=== PATIENT | female | born 1980 | race Caucasian/White ===

== ENCOUNTER 2021-07-29 11:00 | Outpatient (RCR) | payer OTHER, SELFPAY | END 2021-08-29 08:00 | disposition home or self-care (01) | LOC: HO.PT 11:00 | DX: R39.15 Urgency of urination (principal) | CPT/HCPCS: 97110; 97112; 97163; 97530 ==

== ENCOUNTER → 2021-08-11 15:12 | Outpatient (BNVA) | payer OTHER, SELFPAY | PROVIDERS: PCP Physician Assistant | DX: N39.41 Urge incontinence (principal) | CPT/HCPCS: 51798; 99212 ==

== ENCOUNTER → 2021-11-11 12:54 | Outpatient (BNVA) | payer OTHER, SELFPAY | PROVIDERS: PCP Physician Assistant ==

== ENCOUNTER → 2022-02-10 13:05 | Outpatient (BNVA) | payer OTHER, SELFPAY | PROVIDERS: PCP Physician Assistant | DX: Z13.89 Encounter for screening for other disorder (principal) ==

== ENCOUNTER → 2022-06-15 15:38 | Outpatient (BNVA) | payer OTHER, SELFPAY | PROVIDERS: PCP Physician Assistant | DX: N39.41 Urge incontinence (principal); R39.15 Urgency of urination | CPT/HCPCS: 51798; 99212 ==

== ENCOUNTER 2023-02-28 15:52 | Outpatient (REF) | payer OTHER, SELFPAY | END 2023-02-28 15:53 | disposition home or self-care (01) | LOC: HO.LAB 15:52 | PROVIDERS: PCP Physician Assistant; Visit Provider Urology | DX: N39.41 Urge incontinence (principal); R39.11 Hesitancy of micturition; R33.9 Retention of urine, unspecified; R30.0 Dysuria | CPT/HCPCS: 87086; 99212 ==

== ENCOUNTER 2023-05-11 13:38 | Outpatient (REF) | payer OTHER, SELFPAY ==
--- NOTE | ~2023-05-11 | US_ITS ---
EXAMINATION: US RETROPERITONEAL COMPLETE (RENAL) CLINICAL INFORMATION: Urgency of urination. COMPARISON: None available. TECHNIQUE: Real-time imaging of the kidneys and bladder. FINDINGS: RIGHT KIDNEY: 10.4 x 3.1 x 5.0 cm (SAG x AP x TRV). The kidney is normal in size, contour, and echogenicity. Renal cortical thickness is normal. No calculi or focal parenchymal lesions. No hydronephrosis. Mild fullness of the renal pelvis is noted. LEFT KIDNEY: 11.0 x 4.0 x 4.5 cm (SAG x AP x TRV). The kidney is normal in size, contour, and echogenicity. Renal cortical thickness is normal. No calculi or focal parenchymal lesions. No hydronephrosis. Mild fullness of the renal pelvis is noted. BLADDER: Well distended and normal. Bilateral ureteral jets are demonstrated. Prevoid bladder volume is 130.69 mL. Postvoid bladder volume is 17.6 mL. Mild trabeculation of the bladder wall is seen. US/US retroperitoneal comp IMPRESSION: 1. Normal appearance of the kidneys. 2. Small post void residual. 3. Mild trabeculation of the bladder wall.
== END 2023-05-11 13:39 | disposition home or self-care (01) ==
LOC: HO.US 13:38
PROVIDERS: PCP Physician Assistant; Visit Provider Urology
DX: R39.15 Urgency of urination (principal)
CPT/HCPCS: 76770

== ENCOUNTER 2023-05-16 13:14 | Outpatient (AMB) | payer OTHER, SELFPAY ==
--- NOTE | 2023-05-16 12:35 | A.OFFVIS_ITS ---
Intake Intake Visit Reasons: 2m/luts Intake Note: Patient presents today for a follow-up on: Meds- Estradiol & Macrobid Allergies to Antibiotic- Sulfa Blood Thinner- None PVR- Pharmacy Technician Inpatient Required: No Accompanied by: Self / Same As Patient Allergies Sulfa (Sulfonamide Antibiotics) Allergy (Unknown, Verified 05/16/23 13:32) Unknown pork Allergy (Unknown, Uncoded 05/16/23 13:32) Unknown Vicodin Allergy (Unknown, Uncoded 05/16/23 13:32) Unknown Patient : Yes HPI HPI Comments History of Present Illness Details Crys is a 42-year-old female who presents to the clinic today for a follow-up. 05/16/23-- Patient was last seen in the office on 02/28/23. She is followed due to lower urinary tract symptoms of dysuria, urinary hesitancy, and incomplete bladder emptying. She was referred to physical therapy, but was discharged from physical therapy due to her noncompliance. On last visit on 02/28/23, she was given a prescription for Macrobid 100 mg twice a day for 10 days. Urine culture was sent. On review, the urine culture came back with no growth. In discussion with the patient, she states that when she took the antibiotic, her urinary symptoms seem to improve. She stopped the antibiotic midway and symptoms came back as far as burning with urination. I explained to her that the urine culture with no growth and that there are no other conditions of the urinary tract which include cystitis that may not have a bacterial cause for the inflammation and that I want to further evaluate her bladder with outpatient cystoscoscpy hydrodistetion. I did discuss avoiding dietary bladder irritants including carbonated beverages, acidy foods and beverages, coffee. Results reviewed - Renal US 05/11/23 -- Kidneys WNL. Negative for renal calculi or parenchymal lesions. Bladder noted some mild trabeculation. Minimal postvoid residual. Urine culture was sent and it came back no growth. Evaluation today-- UA -- 2+ leukocytes. Blood negative. I will send the urine for culture again. Plan: Ultrasound findings were discussed with the patient. Patient signed consent for cystoscopy hydrodistention. I prescribed Pyridium 200 mg to use twice a day p.r.n. for her symptoms of dysuria. FORMERLY [facility] Medical History Anemia Chronic back pain Chronic fatigue syndrome Constipation Fibroids Gastritis Hepatitis C HTN (hypertension) Hypokalemia Urgency incontinence Urgency incontinence Surgical History History of surgery Review of Systems Const All systems reviewed & are unremarkable except as noted in HPI and below Reports no additional complaints Eyes Reports no additional complaints ENT Denies neck pain Card Denies leg edema Resp Denies cough GI Denies constipation Reports no additional complaints Musc Reports no additional complaints and Denies neck pain Skin/Breast Denies rash and Denies unusual bruising Neuro Reports no additional complaints Psych Reports no additional complaints Endo Reports no additional complaints Rubén/Lymph Reports no additional complaints Aller/Immun Reports no additional complaints Physical Exam Const General: cooperative, healthy appearing and no acute distress Orientation/consciousness: patient oriented x3 HEENT Head: Yes normal to inspection, Yes normocephalic and Yes atraumatic Eyes Conjunctivae: conjunctivae normal Neck Neck: Yes normal visual inspection and Yes trachea midline Chest Chest palpation & inspection: normal inspection of the chest Resp Effort & Inspection: normal respiratory effort Cardio Rate: regular rate GI Inspection: Yes normal to inspection Neuro General: patient oriented x3 Extrem General: No edema Psych Appearance: grossly normal Results Reviewed Results Reviewed: Date: 05/11/23 FINDINGS: RIGHT KIDNEY: 10.4 x 3.1 x 5.0 cm (SAG x AP x TRV). The kidney is normal in size, contour, and echogenicity. Renal cortical thickness is normal. No calculi or focal parenchymal lesions. No hydronephrosis. Mild fullness of the renal pelvis is noted. LEFT KIDNEY: 11.0 x 4.0 x 4.5 cm (SAG x AP x TRV). The kidney is normal in size, contour, and echogenicity. Renal cortical thickness is normal. No calculi or focal parenchymal lesions. No hydronephrosis. Mild fullness of the renal pelvis is noted. BLADDER: Well distended and normal. Bilateral ureteral jets are demonstrated. Prevoid bladder volume is 130.69 mL. Postvoid bladder volume is 17.6 mL. Mild trabeculation of the bladder wall is seen. IMPRESSION: 1.? Normal appearance of the kidneys. 2.? Small post void residual. 3.? Mild trabeculation of the bladder wall. Assessment & Plan Assessment & Plan (1) Urinary urgency: Code(s): R39.15 - Urgency of urination (2) Dysuria: Code(s): R30.0 - Dysuria Plan Ultrasound findings were discussed with the patient. Patient signed consent for cystoscopy hydrodistention. I prescribed Pyridium 200 mg to use twice a day p.r.n. for her symptoms of dysuria. Orders: Orders AMB Urinalysis Automated 05/16/23 Z13.9 - Encounter for screening, unspecified Medications: New phenazopyridine (Pyridium) 200 mg PO BID 40 tabs 0RF Patient Instructions: The patient had an opportunity to ask questions regarding treatment plan. All questions were answered. Imaging, Laboratory studies and physical exam results were discussed and reviewed in detail. No major barriers to understanding were identified. The patient expressed understanding and agreement with the above treatment plan. The patient is aware they should contact our office by phone for worsening of their current condition or the appearance of new symptoms. Compliance is encouraged with any medications and followup testing that is ordered. It is a privilege to be allowed the opportunity to participate in the urologic care of your patient. If you have any questions or concerns regarding treatment for the above conditions please do not hesitate to contact me. The office telephone contact is [phone]. This note is constructed in part using voice recognition software. While every effort has been made to ensure accuracy rotoprinter errors may have been included. Yours sincerely, Dylan Chavarria MD Coding Level of Care Code Est Pt Level 4 (17235) Diagnoses Urinary urgency R39.15 Dysuria R30.0
== END 2023-05-16 13:51 | disposition home or self-care (01) ==
PROVIDERS: Visit Provider Urology
DX: R39.15 Urgency of urination (principal); R30.0 Dysuria
CPT/HCPCS: 99214

== ENCOUNTER → 2023-05-16 13:14 | Outpatient (BNVA) | payer OTHER, SELFPAY | PROVIDERS: Visit Provider Urology | DX: R39.15 Urgency of urination (principal); R30.0 Dysuria | CPT/HCPCS: 99212 ==

== ENCOUNTER 2023-06-18 15:17 | Outpatient (AMB) | payer OTHER, SELFPAY ==
--- NOTE | 2023-06-15 12:06 | A.OFFVIS_ITS ---
Intake Intake Visit Reasons: surgical questions Intake Note: Patient presents today for a follow-up on Surgical Questions: Meds- Estradiol & Macrobid Allergies to Antibiotic- Sulfa Blood Thinner- None Clinical Data Research Required: No Accompanied by: Self / Same As Patient Allergies Sulfa (Sulfonamide Antibiotics) Allergy (Unknown, Verified 06/18/23 15:30) Unknown pork Allergy (Unknown, Uncoded 06/18/23 15:30) Unknown Vicodin Allergy (Unknown, Uncoded 06/18/23 15:30) Unknown HPI HPI Comments History of Present Illness Details Trista is a 42-year-old female who presents today to the office for surgical questions. 06/18/2023? She was last seen by me on 05/16/2023 for lower urinary tract symptoms of dysuria, urinary hesitancy, and incomplete bladder emptying. She was prescribed Pyridium 200 mg to use twice a day p.r.n. for her symptoms of dysuria at that time. The visit was changed to in office to Tele-health visit. She had questions regarding US results and procedure. I have reviewed renal US results from 05/11/2023 revealed Kidneys WNL. Negative for renal calculi or parenchymal lesions. Bladder noted some mild trabeculation. Minimal postvoid residual. She is on OTC Azo with benefit. She denies any burning with urination at this time. Cystoscopy Hydrodistension discussed to further evaluate her bladder. Discussed risks to include but not limited to, blood in the urine, burning with urination, urgency. Review of charts: Last visit: 05/16/2023-- She is followed due to lower urinary tract symptoms of dysuria, urinary hesitancy, and incomplete bladder emptying. She was referred to physical therapy, but was discharged from physical therapy due to her noncompliance. On last visit on 02/28/23, she was given a prescription for Macrobid 100 mg twice a day for 10 days. Urine culture was sent. On review, the urine culture came back with no growth. In discussion with the patient, she states that when she took the antibiotic, her urinary symptoms seem to improve. She stopped the antibiotic midway and symptoms came back as far as burning with urination. I explained to her that the urine culture with no growth and that there are no other conditions of the urinary tract which include cystitis that may not have a bacterial cause for the inflammation and that I want to further evaluate her bladder with outpatient cystoscoscpy hydrodistetion. I did discuss avoiding dietary bladder irritants including carbonated beverages, acidy foods and beverages, coffee. Results reviewed - Renal US 05/11/23 -- Kidneys WNL. Negative for renal calculi or parenchymal lesions. Bladder noted some mild trabeculation. Minimal postvoid residual. Urine culture was sent and it came back no growth. Evaluation today-- UA -- 2+ leukocytes. Blood negative. I will send the urine for culture again. Plan: cystoscopy hydrodistention. I prescribed Pyridium 200 mg to use twice a day p.r.n. for her symptoms of dysuria 06/18/2023--Plan: Reschedule the cystoscopy hydrodistention. FOR[facility]LY [facility] Medical History Anemia Chronic back pain Chronic fatigue syndrome Constipation Fibroids Gastritis Hepatitis C HTN (hypertension) Hypokalemia Urgency incontinence Urgency incontinence Surgical History History of surgery Results Reviewed Results Reviewed: Date of Service: 05/11/23 EXAMINATION: US RETROPERITONEAL COMPLETE (RENAL) CLINICAL INFORMATION: Urgency of urination. COMPARISON: None available. FINDINGS: RIGHT KIDNEY: 10.4 x 3.1 x 5.0 cm (SAG x AP x TRV). The kidney is normal in size, contour, and echogenicity. Renal cortical thickness is normal. No calculi or focal parenchymal lesions. No hydronephrosis. Mild fullness of the renal pelvis is noted. LEFT KIDNEY: 11.0 x 4.0 x 4.5 cm (SAG x AP x TRV). The kidney is normal in size, contour, and echogenicity. Renal cortical thickness is normal. No calculi or focal parenchymal lesions. No hydronephrosis. Mild fullness of the renal pelvis is noted. BLADDER: Well distended and normal. Bilateral ureteral jets are demonstrated. Prevoid bladder volume is 130.69 mL. Postvoid bladder volume is 17.6 mL. Mild trabeculation of the bladder wall is seen. IMPRESSION: 1.? Normal appearance of the kidneys. 2.? Small post void residual. 3.? Mild trabeculation of the bladder wall. Assessment & Plan Assessment & Plan (1) Urinary urgency: Code(s): R39.15 - Urgency of urination (2) Dysuria: Code(s): R30.0 - Dysuria Plan Reschedule the cystoscopy hydrodistention. Patient Instructions: The patient had an opportunity to ask questions regarding treatment plan. All questions were answered. Imaging, Laboratory studies and physical exam results were discussed and reviewed in detail. No major barriers to understanding were identified. The patient expressed understanding and agreement with the above treatment plan.? ? ? The patient is aware they should contact our office by phone for worsening of their current condition or the appearance of new symptoms. Compliance is encouraged with any medications and followup testing that is ordered.? ? ? It is a privilege to be allowed the opportunity to participate in the urologic care of your patient. If you have any questions or concerns regarding treatment for the above conditions please do not hesitate to contact me. The office telephone contact is [phone].? ? ? This note is constructed in part using voice recognition software. While every effort has been made to ensure accuracy wood grainer errors may have been included.? ? ? Yours sincerely,? ? ? Dylan Chavarria MD? ? Telehealth Telehealth Location of provider rendering services: practice address Location of patient: address on file Patient Identification confirmed using: Name, : Yes Telehealth method: voice only Patient verbally consented to treatment: Yes Patient verbally consented to billing insurance company: Yes Patient informed of any privacy concerns related to visit: Yes Minutes spent on Phone/Video with Pt.: 15 Coding Level of Care Code Tele Est Pt Level 3 (62452) Diagnoses Urinary urgency R39.15 Dysuria R30.0
== END 2023-06-18 16:20 | disposition home or self-care (01) ==
PROVIDERS: PCP Physician Assistant; Visit Provider Urology
DX: R39.15 Urgency of urination (principal); R30.0 Dysuria
CPT/HCPCS: 99213

== ENCOUNTER → 2023-06-18 15:17 | Outpatient (BNVA) | payer OTHER, SELFPAY | PROVIDERS: PCP Physician Assistant; Visit Provider Urology ==

== ENCOUNTER → 2023-06-26 07:42 | Day surgery (SDC) | payer OTHER, SELFPAY ==
--- NOTE | 2023-05-21 09:30 | HO.ANESPROP2 ---
HPI - Anesthesia Eval Consult details Narrative: 42yo F for Cystoscopy Hydrodistention of Bladder PMFSH Active Problems Active Problems: All Active Problems (Updated 02/28/23 @ 16:30 by Nash Young) Dysuria (Acute) Vaginal prolapse (Acute) Urgency incontinence (Acute) Urinary urgency (Acute) Past Medical History Medical History Anemia Chronic back pain Chronic fatigue syndrome Constipation Fibroids Gastritis Hepatitis C HTN (hypertension) Hypokalemia Urgency incontinence Urgency incontinence Surgical History Surgical History History of surgery Meds Allergies Allergy/AdvReac Type Severity Reaction Status Date / Time Sulfa (Sulfonamide Allergy Unknown Unknown Verified 05/16/23 13:32 Antibiotics) pork Allergy Unknown Unknown Uncoded 05/16/23 13:32 Vicodin Allergy Unknown Unknown Uncoded 05/16/23 13:32 Home Medications Medication Instructions Recorded Confirmed Last Taken Type diphenoxylate-atropine 2.5 1 tab PO TID 05/04/21 09/06/22 Unknown History mg-0.025 mg tablet escitalopram oxalate 10 mg tablet 10 mg PO DAILY 05/04/21 09/06/22 Unknown History medroxyprogesterone 5 mg tablet 5 mg PO DAILY 05/04/21 09/06/22 Unknown History meloxicam 7.5 mg tablet 7.5 mg PO DAILY 05/04/21 09/06/22 Unknown History doxycycline hyclate 100 mg tablet 100 mg PO BID 11/11/21 09/06/22 Unknown History sertraline 25 mg tablet 25 mg PO DAILY 11/11/21 09/06/22 Unknown History terbinafine HCl 250 mg tablet 250 mg PO DAILY 11/11/21 09/06/22 Unknown History fluocinonide 0.05 % topical cream 1 appl topical BID 06/15/22 09/06/22 Unknown History trazodone 50 mg tablet 50 mg PO BEDTIME 09/06/22 09/06/22 Unknown History venlafaxine 75 mg capsule,extended 75 mg PO DAILY 09/06/22 09/06/22 Unknown History release 24 hr Exam Exam Date and Time: May 21, [id number] Assessment and Plan Assessment Anesthesia Assessment: Chart Reviewed
--- NOTE | 2023-06-25 09:48 | HO.ANESPROP2 ---
Documented by User: Mallika Prado NP 06/25/23 09:48 HPI - Anesthesia Eval Consult details Narrative: 42yo F for Cystoscopy Hydrodistention of Bladder PMFSH Active Problems Active Problems: All Active Problems (Updated 02/28/23 @ 16:30 by Nash Young) Dysuria (Acute) Vaginal prolapse (Acute) Urgency incontinence (Acute) Urinary urgency (Acute) Past Medical History Medical History Anemia Chronic back pain Chronic fatigue syndrome Constipation Fibroids Gastritis Hepatitis C HTN (hypertension) Hypokalemia Urgency incontinence Urgency incontinence Surgical History Surgical History History of surgery Social History Social History Advance Directives: No Advance Directives Information Provided: Yes Meds Allergies Allergy/AdvReac Type Severity Reaction Status Date / Time Sulfa (Sulfonamide Allergy Unknown Unknown Verified 06/18/23 15:30 Antibiotics) pork Allergy Unknown Unknown Uncoded 06/18/23 15:30 Vicodin Allergy Unknown Unknown Uncoded 06/18/23 15:30 Home Medications Medication Instructions Recorded Confirmed Last Taken Type diphenoxylate-atropine 2.5 1 tab PO TID 05/04/21 09/06/22 Unknown History mg-0.025 mg tablet escitalopram oxalate 10 mg tablet 10 mg PO DAILY 05/04/21 09/06/22 Unknown History medroxyprogesterone 5 mg tablet 5 mg PO DAILY 05/04/21 09/06/22 Unknown History meloxicam 7.5 mg tablet 7.5 mg PO DAILY 05/04/21 09/06/22 Unknown History doxycycline hyclate 100 mg tablet 100 mg PO BID 11/11/21 09/06/22 Unknown History sertraline 25 mg tablet 25 mg PO DAILY 11/11/21 09/06/22 Unknown History terbinafine HCl 250 mg tablet 250 mg PO DAILY 11/11/21 09/06/22 Unknown History fluocinonide 0.05 % topical cream 1 appl topical BID 06/15/22 09/06/22 Unknown History trazodone 50 mg tablet 50 mg PO BEDTIME 09/06/22 09/06/22 Unknown History venlafaxine 75 mg capsule,extended 75 mg PO DAILY 09/06/22 09/06/22 Unknown History release 24 hr Exam Exam Date and Time: June 25, [id number] Assessment and Plan Assessment Anesthesia Assessment: Chart Reviewed Documented by User: Gabriella Mckinney MD 06/26/23 08:17 HPI - Anesthesia Eval Consult details Narrative: 42yo F for Cystoscopy Hydrodistention of Bladder. Patient admitted to drinking gin and smoking marijuana this morning before coming in for surgery. Case cancelled. [facility] Past Medical History Medical History Anemia Chronic back pain Chronic fatigue syndrome Constipation Fibroids Gastritis Hepatitis C HTN (hypertension) Hypokalemia Urgency incontinence Urgency incontinence Surgical History Surgical History History of surgery Social History Social History Advance Directives: No Advance Directives Information Provided: Yes Meds Allergies Allergy/AdvReac Type Severity Reaction Status Date / Time Sulfa (Sulfonamide Allergy Unknown Unknown Verified 06/18/23 15:30 Antibiotics) pork Allergy Unknown Unknown Uncoded 06/18/23 15:30 Vicodin Allergy Unknown Unknown Uncoded 06/18/23 15:30 Home Medications Medication Instructions Recorded Confirmed Last Taken Type diphenoxylate-atropine 2.5 1 tab PO TID 05/04/21 09/06/22 Unknown History mg-0.025 mg tablet escitalopram oxalate 10 mg tablet 10 mg PO DAILY 05/04/21 09/06/22 Unknown History medroxyprogesterone 5 mg tablet 5 mg PO DAILY 05/04/21 09/06/22 Unknown History meloxicam 7.5 mg tablet 7.5 mg PO DAILY 05/04/21 09/06/22 Unknown History doxycycline hyclate 100 mg tablet 100 mg PO BID 11/11/21 09/06/22 Unknown History sertraline 25 mg tablet 25 mg PO DAILY 11/11/21 09/06/22 Unknown History terbinafine HCl 250 mg tablet 250 mg PO DAILY 11/11/21 09/06/22 Unknown History fluocinonide 0.05 % topical cream 1 appl topical BID 06/15/22 09/06/22 Unknown History trazodone 50 mg tablet 50 mg PO BEDTIME 09/06/22 09/06/22 Unknown History venlafaxine 75 mg capsule,extended 75 mg PO DAILY 09/06/22 09/06/22 Unknown History release 24 hr Exam Pertinent Lab Results Pertinent Lab Results: Lab Results 06/26/23 Range/Units 06:45 Urine Test NEGATIVE (NEGATIVE)
[2023-06-26 08:07] LABS: UPreg QC Valid YES; Urine Pregnancy NEGATIVE (NEGATIVE)
--- NOTE | 2023-06-26 08:39 | PC.NURSE ---
Patient admitted to drinking 3/4 nip of gin on her ride to [employer] and also smoked marijuana that was rolled by my friend that was not bought at a dispensary. Dr. Navarro updated and tox screen added to u preg. Dr. Nvaarro met with patient and educated her regarding etoh use and that procedure will be canceled today. Dr. Chavarria with patient and states will order anxiety medication for patient before next procedure.
[2023-06-26 08:56] LABS: Amphetamine Screen Urine Not Detected (Not Detect); Barbiturates, Urine Not Detected (Not Detect); Benzodiazepines Screen Urine Not Detected (Not Detect); Cannabinoid Screen Urine Not Detected (Not Detect); Cocaine Screen Urine POSITIVE (Not Detect); Fentanyl, urine Not Detected (Not Detect); Opiate Screen Urine Not Detected (Not Detect); Phencyclidine Screen Urine Not Detected (Not Detect)
== END ==
PROVIDERS: Internal Medicine; Nurse Practitioner; PCP Physician Assistant; Visit Provider Urology
DX: R30.0 Dysuria (principal); Z53.09 Procedure and treatment not carried out because of other contraindication; F10.90 Alcohol use, unspecified, uncomplicated; F12.90 Cannabis use, unspecified, uncomplicated
CPT/HCPCS: 80307; 81025